=== PATIENT | female | born 1960 | race Caucasian/White ===

== ENCOUNTER 2016-09-01 08:35 | Inpatient (IN) | payer OTHER ==
[~2016-09-01] VITALS: Ht 160 cm; Wt 67.2 kg
[2016-09-01] VITALS (21 sets, daily range): BP systolic 119–142; BP diastolic 63–76; PULSE 83–102; RESP 16–18; Ht 160 cm; Wt 67.2 kg
[~2016-09-01 08:35] MED LIST: metroNIDAZOLE 500 MG/100 ML NS IVPB ONE
[2016-09-01] MEDS ORDERED: CEFAZOLIN 2 GM/50 ML (PMX) 50 ML IVPB ONE (09:00)
[2016-09-01] MEDS ORDERED: Metronidazole 500 MG in NS 100 ML IVPB ONE (09:00)
[2016-09-01] MEDS: LACTATED RINGER'S 1,000 ML IV SCH ×4 (09:58→20:35)
[2016-09-01] MEDS ORDERED: METHYLENE BLUE 1% 10 ML INJ ONE (10:44)
[2016-09-01] MEDS ORDERED: THROMBIN 5000 UNIT VIAL ONE (10:44)
[2016-09-01] MEDS ORDERED: VASOPRESSIN 20 UNITS INJ ONE (10:44)
[2016-09-01] MEDS ORDERED: CEFAZOLIN 1 GM INJ ONE (11:00)
[2016-09-01] MEDS ORDERED: ONDANSETRON 4 MG INJ ONE (11:00)
[2016-09-01] MEDS ORDERED: PROPOFOL 20 ML ONE (11:00)
[2016-09-01] MEDS ORDERED: ROCURONIUM 50 MG INJ ONE ×2 (11:00→13:15)
[2016-09-01] MEDS ORDERED: morphine SULFATE/PF (10 MG/10 ML) INJ ONE (11:00)
[2016-09-01] MEDS ORDERED: GLYCOPYRROLATE 0.4 MG INJ ONE (11:00)
[2016-09-01] MEDS ORDERED: DEXAMETHASONE 4 MG/ML 1 ML INJ ONE (11:00)
[2016-09-01] MEDS ORDERED: MIDAZOLAM 1 MG/ML 2 ML INJ ONE (11:00)
[2016-09-01] MEDS ORDERED: FENTAnyl 50 MCG/ML VIAL ONE ×3 (11:00→13:20)
[2016-09-01] MEDS ORDERED: NEOSTIGMINE 3 MG/3 ML SYRINGE ONE (11:00)
--- NOTE | 2016-09-01 11:39 | HPN ---
Date/Time of Note Date/Time of Note DATE: 09/01/16 TIME: 11:39 Interval H&P Admission Note Pt. seen H&P reviewed: No system changes ANGELA CRUZ MD Sep 01, 2016 11:39
--- NOTE | 2016-09-01 11:43 | HP ---
Date/Time of Note Date/Time of Note DATE: 09/01/16 TIME: 11:41 Assessment/Plan VTE Prophylaxis VTE Prophylaxis Intervention: SCD's Lines/Catheters IV Catheter Type (from Rust): Saline Lock HPI/ROS Admit Date/Time Admit Date/Time Sep 01, 2016 at 08:38 Hx of Present Illness Julien Tena M.D. [facility] History and Physical Examination Estela Perry Aug 31, 2016 Age:56 :1960 Physicians: Physical Therapy Manager Sales Development Manager Oncologist Referring MD: History of the Present Illness: This is a 56 female with a grade 2 endometrial cancer recently diagnosed by d/c endometrial biopsy. Medical history/ROS: Anxiety Ab3 Last Pap Smear: 05/2016 Last Mammogram: 05/2016 Surgical history: no significant abdominal procedures. Medications: Flu no, declined, Pneumococcal no, declined Colonoscopy: yes, 2004 Allergies: No active allergies recorded Family History: Brother -- Colon Ca Social History: Noncontributory Review of Systems: Negative except for above noted Physical Examination Vitals (07/26/2016): Weight 150, Height 63, BP 124/80, BMI 26.6. General: Alert. HEENT: Pupils are equal, round, reactive to light and accommodation. Neck: Supple with no masses of lymphadenopathy. Breast: Deferred due to recent examination and responsibility of primary care physician. Chest: Clear to auscultation and percussion with no rales, ronchi, or wheeze. Heart: Normal rhythm with no murmur. Abdominal exam: nontender, nondistended, no masses, no ascites. location: N/A Pelvic exam: Uterus enlarged and glubular no masses or cul-de-sac nodularity noted Rectal: confirmatory with pelvic exam. Neurological: Grossly intact Assessment: endomtrial cancer stage to be determined Plan: TLH/BSO, pelvic and aortic LND possible ureteral dissection. All risks and benefits of this procedure have been discussed in detail with the patient, as well as alternative treatment strategies and their implications. The patient is aware that there is some possibility of a blood transfusion and its associated risks and benefits. She wishes to proceed and gives her informed consent. Julien Tena M.D. PMH/Family/Social Social History Smoking Status: Heavy tobacco smoker Exam/Review of Systems Vital Signs Vitals Vital Signs Date Time Temp Pulse Resp B/P Pulse Ox O2 Delivery O2 Flow Rate FiO2 09/01/16 09:40 97.6 83 18 128/76 99 Room Air Medications Medications Current Medications Potassium Chloride/Dextrose/ Sod Cl 1,000 ml @ 100 mls/hr Q10H IV ; Start 09/01 at 09:00; Stop 09/01/16 at 20:00 Lactated Ringer's (Lr) 1,000 ml @ 200 mls/hr Q5H IV Last administered on t 09:58; Admin Dose 200 MLS/HR; Start 09/01/16 at 10:00 JULIEN TENA MD Sep 01, 2016 11:43
[2016-09-01] MEDS ORDERED: ROPIVACAINE 0.2% 20 ML VIAL ONE (11:56)
[2016-09-01] MEDS ORDERED: KETOROLAC 30 MG INJ IV PRN (12:00)
[2016-09-01] MEDS ORDERED: CEFAZOLIN 1 GM in SOD CHLORIDE 0.9% 100 ML IVPB SCH (12:00)
[2016-09-01] MEDS ORDERED: POTASSIUM CHLORIDE 20 MEQ in LACTATED RINGER'S 990 ML IV SCH (13:00)
[2016-09-01] MEDS ORDERED: LABETALOL HCL 20MG INJ ONE (13:22)
[2016-09-01] MEDS ORDERED: HYDROmorphONE 1 MG/ML SYG IV PRN ×2 (13:30)
[2016-09-01] MEDS ORDERED: FENTAnyl 50 MCG/ML VIAL IV PRN ×3 (13:30)
[2016-09-01] MEDS ORDERED: NALOXONE (0.4 MG/ML) INJ IV PRN (13:30)
[2016-09-01] MEDS ORDERED: EPHEDrine SULFATE 50 MG/5 ML SYG IV PRN (13:30)
[2016-09-01] MEDS ORDERED: hydrALAzine 20 MG INJ IV PRN (13:30)
[2016-09-01] MEDS ORDERED: NALBUPHINE HCL (10 MG/1 ML) INJ IV PRN (13:30)
[2016-09-01] MEDS ORDERED: HYDROmorphONE (0.2 MG/ML) 10ML SYG IV PRN ×3 (13:30)
[2016-09-01] MEDS ORDERED: OXYCODONE/ACETAMINOPHEN (5/325) TAB PO PRN ×2 (13:30)
[2016-09-01] MEDS ORDERED: DIPHENHYDRAMINE 50 MG INJ IV PRN ×2 (13:30)
[2016-09-01] MEDS ORDERED: FENTAnyl 2MCG/ML-ROPIV 0.2% 100 ML BAG EPI SCH (13:30)
[2016-09-01] MEDS ORDERED: MIDAZOLAM 1 MG/ML 2 ML INJ IV PRN (13:30)
[2016-09-01] MEDS ORDERED: LABETALOL HCL 20MG INJ IV PRN (13:30)
[2016-09-01] MEDS ORDERED: ONDANSETRON 4 MG INJ IV PRN ×2 (13:30)
[2016-09-01] MEDS ORDERED: ZOLPIDEM 5 MG TAB PO PRN (13:30)
[2016-09-01] MEDS ORDERED: TRIMETHOBENZAMIDE 100 MG/ML VIAL IM PRN ×2 (13:30)
[2016-09-01] MEDS ORDERED: MEPERIDINE 25 MG INJ IV PRN (13:30)
[2016-09-01] MEDS ORDERED: SUGAMMADEX SODIUM 200 MG/2 ML VIAL IV ONE (15:48)
[2016-09-01 17:23] LABS: ADD SCAN DIFF NO
[2016-09-01 17:28] LABS: ABNORMAL IP MESSAGE 1; HEMATOCRIT 37.8 % (37.0-47.0); HEMOGLOBIN 13.5 g/dl (12.0-16.0); MEAN CORPUSCULAR HEMOGLOBIN 32.5 pg (29.0-33.0); MEAN CORPUSCULAR HGB CONC 35.7 g/dl (32.0-37.0); MEAN CORPUSCULAR VOLUME 90.9 fl (82.0-101.0); MEAN PLATELET VOLUME 10.5 fl (7.4-10.4); PLATELET COUNT 154 10^3/UL (140-415); RED BLOOD COUNT 4.16 10^6/ul (4.20-5.40); WHITE BLOOD COUNT 13.3 10^3/ul (4.8-10.8)
[2016-09-01 17:50] LABS: CALCIUM 8.4 mg/dl (8.4-10.2); CREATININE 0.92 mg/dl (0.44-1.00); POTASSIUM 3.8 mmol/L (3.5-5.1)
[2016-09-01] MEDS: D5-NS + KCL 20 MEQ 1,000 ML IV SCH ×2 (18:01→19:00)
[2016-09-01 19:05] LABS: LYMPHOCYTES # 0.5 10^3/ul (0.8-2.9); MONOCYTE # 0.3 10^3/ul (0.3-0.9); NEUTROPHIL # 12.1 10^3/ul (1.6-7.5)
[2016-09-01] MEDS: FAMOTIDINE 20 MG INJ IV SCH (20:35)
--- NOTE | 2016-09-01 20:46 | OPR ---
Date/Time of Note Date/Time of Note DATE: 09/01/16 TIME: 20:45 Operative Report Free Text/Dictation OPERATIVE REPORT [facility] Name: Estela Perry Medical Date: 09/01/16 Preoperative Diagnosis: 1-Endometrial cancer grade 2 Postoperative Diagnosis: Endometrial cancer with final pathology pending Procedures: 1- Total laparoscopic hysterectomy with bilateral salpingoophorectomy 2- Bilateral ureteral dissection with repositioning 3- Laparoscopic pelvic and aortic lymph node dissection 4- Retroperitoneal uterine artery ligation adjacent to hypogastric artery 5- Minilaparotomy Surgeon: Dr. Tena Anatomy And Physiology Instructor: Dr. Mac Anaesthesia: General with regional Indications for Procedure: This 56- year old patient had a grade 2 endometrial cancer without evidence of metastatic disease preoperatively and after discussions of options with risks and benefits it was determined that a laparoscopic hysterectomy with bilateral salpingoophorectomy and pelvic/aortic lymph node dissection would be completed for the purposes of treatment and possibly planning additional adjuvant therapy. The pelvic and LND was performed in lieu of final grading not being equivalent to preoperative D&C grade 18-25% of the time and frozen section not being more that 80% reliable in determining grade and depth of invasion; therefore complete staging is performed to determine postoperative management unless there is a significant contraindication. Name: Estela Perry Medical Intraoperative Findings and Summary of Procedure: After placing the Trocars and exploration we noted uterine enlargement with small fibroids with significant adhesions of the adnexia to the sidewalls. The TLH/BSO was then performed without incident but required a ureteral dissection due to anatomic issues of the uterine enlargement due to potential invasion and fibroids and the adnexia adherent to the sidewalls and with retroperitoneal uterine artery ligation adjacent to hypogastric artery for required hemostasis also due to the anatomic deformities, with the laparoscopic LND being subsequently performed with a finding of grossly negative nodes pathology pending. Following vaginal cuff closure and completion of the lymph node dissection the uterus with tubes and ovaries were removed through a minilaparotomy due to a long narrow vagina by extension of the suprapubic 12-mm trocar site. Findings and Procedure: After being prepped and draped in the usual manner an EEA sizer and pneumo- occluder was inserted vaginally. A 5 millimeter trocar was then placed periumbilically without incident. Subsequently, we insufflated and placed two 12- millimeter trocars laterally and a 12 millimeter trocar suprapubically, as well as an additional 5-mm trocar cephlad to the umbilicus. At this time multiple pelvic adhesions were lysed with sharp dissection and the Omni if not adjacent to serosa with a tiny serosal defect. Subsequently we explored and noted a uterine enlargement with adnexia adherent to the sidewalls due to apparent inflammation and old scar tissue. Initially washings were taken and the right round ligament was cauterized and transected with the Gyrus bipolar cutting forceps and the retroperitoneal space further opened parallel to the IP ligament an laterally with the same devise and the Omni. The right ureter was identified and due to the aforementioned distortion due to the extensive uterine enlargement and from adherent adnexia was dissected laterally with the Omni and the endo-dissector. After lateralizing the ureter the uterine artery was identified and clipped lateral to the ureter. Hence, a space was developed the broad ligament and the right IP ligament was Name: [facility] cauterized and transected with a Gyrus bipolar cutting forceps and Thunderbeat after which the uterus was retracted medially and the bladder flap was partly developed with the Gyrus bipolar cutting forceps and the Omni. We then used a 10 -mm ratcheted endo-grasper placed through the 12-mm suprapubic trocar to manipulate the uterus and with the EEA sizer the uterus was retracted and left round ligament was cauterized and transected with the Gyrus bipolar cutting forceps and the retroperitoneal space further opened parallel to the IP ligament an laterally with the same devise. The left ureter was identified and due to the aforementioned distortion was dissected laterally with the Omni and the endo-dissector as done contralaterally. After lateralizing the ureter the uterine artery was identified and clipped lateral to the ureter. Hence, a space was developed in the broad ligament and the left IP ligament was cauterized and transected with a Thunderbeat after which the uterus was retracted medially with the corkscrew, allowing development or the bladder flap uneventfully with the Omni and blunt dissection. Subsequently, the right uterine artery was transected with a Cutting Forceps perpendicular to the distal lower uterine segment and the Cardinal ligament and utero-sacral ligament were both transected with an Omni and Thunderbeat parallel to the lower uterine segment and cervix. An identical series of steps were taken on the left side. The anterior and posterior colpotomies were accomplished with a Thunderbeat anteriorly and posteriorly, and continued around the sides as the specimen was allowed to be free. The vagina was closed with interrupted 0- Vicryl suture and continuous 2-0 v-lock suture. At this time the suprapubic 12 -mm site was extended cephlad 4- cm with a scalpel and the deeper clinical biochemist to the fascia was opened with cautery and the fascia opened digitally and with cautery. The peritoneal cavity was entered bluntly and the aforementioned uterus tubes and ovaries removed with a ring forceps and digitally. The abdomen was irrigated locally and after assuring hemostasis the fascia was closed with partly with interrupted 0- Vicryl suture and the 12-millimeter trocar was reinserted. At this time the pelvic and aortic LND were completed after confirming hemostasis. Initially a fan retractor was used for exposure and secured to the Jong arm and all Name: [facility] lymph node tissue adjacent to the right external iliac artery and vein, hypogastric artery and vein, as well as obturator fossa were removed with sharp and blunt dissection, using the Gyrus bipolar cutting forceps and Omni for hemostasis and lymphostasis. The derek tissue was grasped and subsequently placed under tractions with the Omni and the Gyrus bipolar cutting forceps and spoon then being used for the hemostasis and lymphostasis in the process of removal. The dissection was continued to include derek tissue adjacent to the common iliac vessels. The obturator nerve was identified and all adjacent derek tissue removed with blunt dissection, with the Gyrus bipolar cutting forceps or Gyrus bipolar Omni used for lymphostasis and hemostasis as needed. The fan retractors were adjusted in that a suprapubically placed fan retracted the broad ligament and ureter with ileum while the right lateral trocar was used for a fan to retract the cecum and ascending colon allowing any derek tissue adjacent to the vena cava, as well as aorto-caval nodes to be removed using identical technique. Racking Technician vessels were addressed with the Gyrus bipolar cutting forceps or Gyrus bipolar Omni. At this time we placed the fan retractors for contralateral exposure. Subsequently, all lymph node tissue adjacent to the left external iliac artery and vein, hypogastric artery and vein , as well as obturator fossa were removed with sharp and blunt dissection, the Gyrus bipolar cutting forceps or Navigenics bipolar Omni for hemostasis and lymphostasis, with a technique identical to the right side. The dissection was continued to include derek tissue adjacent to the common iliac vessels. Subsequently, the fan retractors were adjusted and any derek tissue adjacent to the aorta were dissected using similar technique. After irrigating and assuring hemostasis the 12 millimeter trocars other than the suprapubic were removed and the fascia was closed with 0-vicryl using an endo-close devise. The gas was removed and the skin of all sites then closed with a deep layer of 3 -0 Vicryl suture and interrupted 5-0 Plain Gut suture. The EBL was 100cc and the patient tolerated the procedure well and left the OR in good condition. Julien Tena M.D. JULIEN TENA MD Sep 01, 2016 20:46
[2016-09-01] MEDS: CEFAZOLIN 1 GM/50 ML (PMX) 50 ML IVPB SCH (21:03)
[2016-09-01] MEDS: HYDROCODONE/APAP (5/325) TAB PO PRN (21:05)
[2016-09-02] MEDS: CEFAZOLIN 1 GM/50 ML (PMX) 50 ML IVPB SCH ×2 (05:10→12:22)
[2016-09-02 05:35] LABS: ADD SCAN DIFF NO
[2016-09-02 05:38] LABS: HEMATOCRIT 35.4 % (37.0-47.0); HEMOGLOBIN 12.1 g/dl (12.0-16.0); LYMPHOCYTES # 0.9 10^3/ul (0.8-2.9); LYMPHOCYTES % 9.2 % (15.0-51.0); MEAN CORPUSCULAR HGB CONC 34.2 g/dl (32.0-37.0); MEAN CORPUSCULAR VOLUME 90.8 fl (82.0-101.0); MEAN PLATELET VOLUME 10.7 fl (7.4-10.4); MONOCYTE # 0.7 10^3/ul (0.3-0.9); MONOCYTES % 7.6 % (0.0-11.0); NEUTROPHIL # 8.1 10^3/ul (1.6-7.5); NEUTROPHILS % 82.7 % (39.0-77.0); PLATELET COUNT 163 10^3/UL (140-415); RED CELL DISTRIBUTION WIDTH 12.1 % (11.5-14.5); WHITE BLOOD COUNT 9.7 10^3/ul (4.8-10.8)
[2016-09-02 05:55] LABS: INR 0.91; PROTIME 12.2 Sec (12.2-14.2)
[2016-09-02] MEDS: LACTATED RINGER'S 1,000 ML IV SCH ×5 (05:58→21:03)
[2016-09-02 06:08] LABS: ALBUMIN 3.6 g/dl (3.3-4.9); BILIRUBIN,INDIRECT 0.2 mg/dl (0-1.1); BILIRUBIN,TOTAL 0.2 mg/dl (0.2-1.3); CALCIUM 8.7 mg/dl (8.4-10.2); CREATININE 0.77 mg/dl (0.44-1.00); POTASSIUM 4.1 mmol/L (3.5-5.1); TOTAL PROTEIN 5.4 g/dl (6.1-8.1)
[2016-09-02 08:01] VITALS: BP 112/58; RESP 18
[2016-09-02] MEDS: FAMOTIDINE 20 MG INJ IV SCH ×2 (08:39→21:00)
[2016-09-02] MEDS: HYDROCODONE/APAP (5/325) TAB PO PRN ×2 (08:43→18:35)
[2016-09-02] MEDS: morphine 2 MG INJ IV PRN (14:40)
--- NOTE | 2016-09-02 16:00 | CONS ---
Date/Time of Note Date/Time of Note DATE: 09/02/16 TIME: 15:57 Assessment/Plan Assessment/Plan Additional Assessment/Plan - Endomtrial cancer stage to be determined - TLH/BSO, pelvic and aortic LND possible ureteral dissection. Consultation Date/Type/Reason Admit Date/Time Sep 01, 2016 at 08:38 Respiratory: no complaints Cardiovascular: no complaints Gastrointestinal: pain Genitourinary: no complaints Musculoskeletal: no complaints Past Medical History History of the Present Illness: This is a 56 female with a grade 2 endometrial cancer recently diagnosed by d/c endometrial biopsy. Ab3 Last Pap Smear: 05/2016 Last Mammogram: 05/2016 Surgical history: no significant abdominal procedures. Medications: Flu no, declined, Pneumococcal no, declined Colonoscopy: yes, 2004 Allergies: No active allergies recorded Family History: Brother -- Colon Ca Social History: Noncontributory Review of Systems: Negative except for above noted Social History Smoking Status: Heavy tobacco smoker Exam/Review of Systems Vital Signs Vitals Vital Signs Date Time Temp Pulse Resp B/P Pulse Ox O2 Delivery O2 Flow Rate FiO2 09/02/16 08:01 98.9 100 18 112/58 98 09/01/16 17:40 2.0 09/01/16 16:40 Nasal Cannula Intake and Output 09/01/16 09/01/16 09/02/16 15:00 23:00 07:00 Intake Total 3850 ml 1370 ml Output Total 400 ml 1800 ml Balance 3450 ml -430 ml Exam Constitutional: alert, oriented, well developed Respiratory: clear to auscultation, normal air movement Cardiovascular: nl pulses, regular rate and rhythm Gastrointestinal: nl liver, spleen, soft Results Result Diagram: 09/02/16 0507 09/02/16 0507 Results 24 hrs Laboratory Tests Test 09/01/16 17:20 09/02/16 05:07 White Blood Count 13.3 H 9.7 # Red Blood Count 4.16 L 3.90 L Hemoglobin 13.5 12.1 Hematocrit 37.8 35.4 L Mean Corpuscular Volume 90.9 90.8 Mean Corpuscular Hemoglobin 32.5 31.0 Mean Corpuscular Hemoglobin Concent 35.7 34.2 Red Cell Distribution Width 12.0 12.1 Platelet Count 154 163 Mean Platelet Volume 10.5 H 10.7 H Neutrophils % 91.0 H 82.7 H Band Neutrophils % 3.0 Lymphocytes % 4.0 L 9.2 L Monocytes % 2.0 7.6 Neutrophils # 12.1 H 8.1 H Lymphocytes # 0.5 L 0.9 Monocytes # 0.3 0.7 Sodium Level 136 137 Potassium Level 3.8 4.1 Chloride Level 105 106 Carbon Dioxide Level 23 26 Anion Gap 12 9 Blood Urea Nitrogen 11 10 Creatinine 0.92 0.77 Glucose Level 189 116 # Calcium Level 8.4 8.7 Eosinophils % 0.0 Basophils % 0.0 Nucleated Red Blood Cells % 0.0 Eosinophils # 0.0 Basophils # 0.0 Nucleated Red Blood Cells # 0.0 Prothrombin Time 12.2 Prothrombin Time Ratio 1.0 INR International Normalized Ratio 0.91 Total Bilirubin 0.2 Direct Bilirubin 0.00 Indirect Bilirubin 0.2 Aspartate Amino Transf (AST/SGOT) 22 Alanine Aminotransferase (ALT/SGPT) 35 Alkaline Phosphatase 45 Total Protein 5.4 L Albumin 3.6 Globulin 1.80 Albumin/Globulin Ratio 2.00 Medications Medications Current Medications Lactated Ringer's (Lr) 1,000 ml @ 60 mls/hr [id number] IV Last administered on 08:43; Admin Dose 60 MLS/HR; Start 09/01/16 at 10:00 Morphine Sulfate (morphine) 2 mg Q2H PRN IV PAIN LEVEL 6-10 Last administered on 09/02/16 14:40; Admin Dose 2 MG; Start 09/01/16 at 12:00 Acetaminophen/ Hydrocodone Bitart ([place] (5/325)) 1 tab Q6H PRN PO PAIN LEVEL 6 -10 Last administered on 09/02/16 08:43; Admin Dose 1 TAB; Start 09/01/16 at 12 :00 Ketorolac Tromethamine (Toradol) 30 mg Q6H PRN IV PAIN; Start 09/01/16 at 12:00 ; Stop 09/04/16 at 11:59 Famotidine (Pepcid Iv) 20 mg Q12 IV Last administered on 09/02/16 08:39; Admin Dose 20 MG; Start 09/01/16 at 21:00 Simethicone (Mylicon) 80 mg BID PRN PO DISTENSION/GAS/BLOATING Last administered on 09/02/16 15:06; Admin Dose 80 MG; Start 09/02/16 at 15:00 MARY SANTOS Sep 02, 2016 16:00
--- NOTE | 2016-09-02 19:34 | RADRPT ---
PROCEDURE: US Lower extremity Venous. CLINICAL INDICATION: edema TECHNIQUE: Multiple sonographic images of the bilateral lower extremity deep venous system was obt ained utilizing grayscale, color-flow, compressive sonography and doppler imaging with augmentation. The images were reviewed on a PACS workstation. COMPARISON: None. FINDINGS: There is normal compressibility and flow within the bilateral common femoral, deep femoral, superfic ial femoral and popliteal veins. The deep veins the calf were incompletely visualized. IMPRESSION: No sonographic evidence for deep venous thrombosis in the bilateral lower extremities. Physician Randi Date Time Electronically viewed and signed by Physician Randi on 09/02/2016 19:33 ML/
[2016-09-02 20:03] VITALS: BP 117/65; RESP 20
[2016-09-03] MEDS: morphine 2 MG INJ IV PRN (00:05)
[2016-09-03] MEDS: HYDROCODONE/APAP (5/325) TAB PO PRN ×2 (06:05→14:19)
[2016-09-03 06:36] LABS: BASOPHILS % 0.1 % (0.0-2.0); EOSINOPHILS % 0.1 % (0.0-7.0); HEMATOCRIT 38.5 % (37.0-47.0); HEMOGLOBIN 12.8 g/dl (12.0-16.0); LYMPHOCYTES # 1.5 10^3/ul (0.8-2.9); LYMPHOCYTES % 11.4 % (15.0-51.0); MEAN CORPUSCULAR HGB CONC 33.2 g/dl (32.0-37.0); MEAN CORPUSCULAR VOLUME 93.2 fl (82.0-101.0); MONOCYTE # 0.9 10^3/ul (0.3-0.9); MONOCYTES % 6.5 % (0.0-11.0); NEUTROPHIL # 10.6 10^3/ul (1.6-7.5); NEUTROPHILS % 81.5 % (39.0-77.0); PLATELET COUNT 165 10^3/UL (140-415); RED BLOOD COUNT 4.13 10^6/ul (4.20-5.40); RED CELL DISTRIBUTION WIDTH 12.4 % (11.5-14.5); WHITE BLOOD COUNT 13.1 10^3/ul (4.8-10.8)
[2016-09-03 07:22] VITALS: BP 110/60; RESP 16
[2016-09-03 07:27] LABS: ADD SCAN DIFF NO
[2016-09-03 07:33] LABS: CALCIUM 9.1 mg/dl (8.4-10.2); CREATININE 0.86 mg/dl (0.44-1.00); POTASSIUM 3.6 mmol/L (3.5-5.1)
[2016-09-03] MEDS: FAMOTIDINE 20 MG INJ IV SCH ×2 (09:06→22:18)
--- NOTE | 2016-09-03 10:26 | PN ---
Date/Time of Note Date/Time of Note DATE: 09/03/16 TIME: 10:23 Assessment/Plan VTE Prophylaxis VTE Prophylaxis Intervention: SCD's Lines/Catheters IV Catheter Type (from Nrs): Peripheral IV Urinary Cath still in place: No Assessment/Plan Chief Complaint/Hosp Course Endometrial cancer Problems: Assessment/Plan A- awaiting flatus to further adv diet and possible d/c tomorrow P- enema and OOB more Subjective 24 Hr Interval Summary Free Text/Dictation no flatus and has gas pains Exam/Review of Systems Vital Signs Vitals Vital Signs Date Time Temp Pulse Resp B/P Pulse Ox O2 Delivery O2 Flow Rate FiO2 09/03/16 07:22 98.8 95 16 110/60 96 09/01/16 17:40 2.0 09/01/16 16:40 Nasal Cannula Intake and Output 09/02/16 09/02/16 09/03/16 15:00 23:00 07:00 Intake Total 100 ml 1770 ml Output Total 2900 ml Balance 100 ml -1130 ml Exam Resp- clear CVS- NSR Abd- distended mildly tender Ext NT no edema Results Result Diagram: 09/03/16 0515 09/03/16 0510 Results 24 hrs Laboratory Tests Test 09/03/16 05:10 09/03/16 05:15 Sodium Level 138 Potassium Level 3.6 Chloride Level 101 Carbon Dioxide Level 29 Anion Gap 12 Blood Urea Nitrogen 10 Creatinine 0.86 Glucose Level 107 Calcium Level 9.1 White Blood Count 13.1 #H Red Blood Count 4.13 L Hemoglobin 12.8 Hematocrit 38.5 Mean Corpuscular Volume 93.2 Mean Corpuscular Hemoglobin 31.0 Mean Corpuscular Hemoglobin Concent 33.2 Red Cell Distribution Width 12.4 Platelet Count 165 Mean Platelet Volume 11.0 H Neutrophils % 81.5 H Lymphocytes % 11.4 L Monocytes % 6.5 Eosinophils % 0.1 Basophils % 0.1 Nucleated Red Blood Cells % 0.0 Neutrophils # 10.6 H Lymphocytes # 1.5 Monocytes # 0.9 Eosinophils # 0.0 Basophils # 0.0 Nucleated Red Blood Cells # 0.0 Medications Medications Current Medications Lactated Ringer's (Lr) 1,000 ml @ 60 mls/hr [id number] IV Last administered on t 08:43; Admin Dose 60 MLS/HR; Start 09/01/16 at 10:00 Morphine Sulfate (morphine) 2 mg Q2H PRN IV PAIN LEVEL 6-10 Last administered on 09/03/16 00:05; Admin Dose 2 MG; Start 09/01/16 at 12:00 Acetaminophen/ Hydrocodone Bitart ([place] (5/325)) 1 tab Q6H PRN PO PAIN LEVEL 6 -10 Last administered on 09/03/16 06:05; Admin Dose 1 TAB; Start 09/01/16 at 12 :00 Ketorolac Tromethamine (Toradol) 30 mg Q6H PRN IV PAIN; Start 09/01/16 at 12:00 ; Stop 09/04/16 at 11:59 Famotidine (Pepcid Iv) 20 mg Q12 IV Last administered on 09/03/16 09:06; Admin Dose 20 MG; Start 09/01/16 at 21:00 Simethicone (Mylicon) 80 mg BID PRN PO DISTENSION/GAS/BLOATING Last administered on 09/03/16 05:56; Admin Dose 80 MG; Start 09/02/16 at 15:00 ANGELA CRUZ MD Sep 03, 2016 10:25
[2016-09-03] MEDS ORDERED: MINERAL OIL 133 ML ENEMA PR ONE (11:30)
[2016-09-03] MEDS: METOCLOPRAMIDE 10 MG INJ IV SCH ×2 (12:58→18:00)
[2016-09-03] MEDS: LACTATED RINGER'S 1,000 ML IV SCH (13:43)
--- NOTE | 2016-09-03 17:28 | PN ---
Date/Time of Note Date/Time of Note DATE: 09/03/16 TIME: 17:20 Assessment/Plan VTE Prophylaxis VTE Prophylaxis Intervention: SCD's Lines/Catheters IV Catheter Type (from Rust): Peripheral IV Urinary Cath still in place: No Assessment/Plan Chief Complaint/Hosp Course Pt tolerates liquid diet well, +BS, neg flatus, voids. Problems: Assessment/Plan - Endometrial cancer, s/p TLH/BSO. Further recommendations based on clinical course. Plan of care discussed with Dr. Olson. Exam/Review of Systems Vital Signs Vitals Vital Signs Date Time Temp Pulse Resp B/P Pulse Ox O2 Delivery O2 Flow Rate FiO2 09/03/16 07:22 98.8 95 16 110/60 96 09/01/16 17:40 2.0 09/01/16 16:40 Nasal Cannula Intake and Output 09/02/16 09/02/16 09/03/16 15:00 23:00 07:00 Intake Total 100 ml 1770 ml Output Total 2900 ml Balance 100 ml -1130 ml Exam Constitutional: alert, oriented Head: atraumatic, normocephalic Neck: non-tender, supple Respiratory: normal air movement Cardiovascular: nl pulses Gastrointestinal: non-tender, other (Status post surgery), soft Extremities: normal pulses Neurological: nl mental status Results Result Diagram: 09/03/16 0515 09/03/16 0510 Results 24 hrs Laboratory Tests Test 09/03/16 05:10 09/03/16 05:15 Sodium Level 138 Potassium Level 3.6 Chloride Level 101 Carbon Dioxide Level 29 Anion Gap 12 Blood Urea Nitrogen 10 Creatinine 0.86 Glucose Level 107 Calcium Level 9.1 White Blood Count 13.1 #H Red Blood Count 4.13 L Hemoglobin 12.8 Hematocrit 38.5 Mean Corpuscular Volume 93.2 Mean Corpuscular Hemoglobin 31.0 Mean Corpuscular Hemoglobin Concent 33.2 Red Cell Distribution Width 12.4 Platelet Count 165 Mean Platelet Volume 11.0 H Neutrophils % 81.5 H Lymphocytes % 11.4 L Monocytes % 6.5 Eosinophils % 0.1 Basophils % 0.1 Nucleated Red Blood Cells % 0.0 Neutrophils # 10.6 H Lymphocytes # 1.5 Monocytes # 0.9 Eosinophils # 0.0 Basophils # 0.0 Nucleated Red Blood Cells # 0.0 Medications Medications Current Medications Lactated Ringer's (Lr) 1,000 ml @ 60 mls/hr [id number] IV Last administered on 08:43; Admin Dose 60 MLS/HR; Start 09/01/16 at 10:00 Acetaminophen/ Hydrocodone Bitart ([place] (5/325)) 1 tab Q6H PRN PO PAIN LEVEL 6 -10 Last administered on 09/03/16 14:19; Admin Dose 1 TAB; Start 09/01/16 at 12 :00 Ketorolac Tromethamine (Toradol) 30 mg Q6H PRN IV PAIN; Start 09/01/16 at 12:00 ; Stop 09/04/16 at 11:59 Famotidine (Pepcid Iv) 20 mg Q12 IV Last administered on 09/03/16 09:06; Admin Dose 20 MG; Start 09/01/16 at 21:00 Metoclopramide HCl (Reglan) 10 mg Q6 IV Last administered on 09/03/16 12:58; Admin Dose 10 MG; Start 09/03/16 at 12:00 CRESENCIO GILBERT Sep 03, 2016 17:28
[2016-09-03 19:30] VITALS: BP 120/65; RESP 18
[2016-09-04] MEDS: METOCLOPRAMIDE 10 MG INJ IV SCH ×3 (06:00→12:00)
[2016-09-04] MEDS: LACTATED RINGER'S 1,000 ML IV SCH (06:23)
[2016-09-04 07:06] LABS: HEMATOCRIT 33.8 % (37.0-47.0); HEMOGLOBIN 11.4 g/dl (12.0-16.0); MEAN CORPUSCULAR HEMOGLOBIN 31.1 pg (29.0-33.0); MEAN CORPUSCULAR HGB CONC 33.7 g/dl (32.0-37.0); MEAN CORPUSCULAR VOLUME 92.3 fl (82.0-101.0); MEAN PLATELET VOLUME 11.6 fl (7.4-10.4); RED BLOOD COUNT 3.66 10^6/ul (4.20-5.40); WHITE BLOOD COUNT 9.4 10^3/ul (4.8-10.8)
[2016-09-04 07:18] LABS: CALCIUM 8.9 mg/dl (8.4-10.2); CREATININE 0.71 mg/dl (0.44-1.00)
[2016-09-04 07:25] LABS: PLATELET COUNT 124 10^3/UL (140-415)
[2016-09-04 07:48] VITALS: BP 111/64; RESP 20
[2016-09-04] MEDS: FAMOTIDINE 20 MG INJ IV SCH (10:14)
[2016-09-04] MEDS: HYDROCODONE/APAP (5/325) TAB PO PRN (10:26)
[2016-09-04 10:41] LABS: EOSINOPHILS # 0.1 10^3/ul (0.0-0.5); LYMPHOCYTES # 1.6 10^3/ul (0.8-2.9); MONOCYTE # 0.5 10^3/ul (0.3-0.9); NEUTROPHIL # 7.2 10^3/ul (1.6-7.5)
--- NOTE | 2016-09-04 14:05 | PN ---
Date/Time of Note Date/Time of Note DATE: 09/04/16 TIME: 14:00 Assessment/Plan VTE Prophylaxis VTE Prophylaxis Intervention: other Lines/Catheters IV [facility]from [facility] Saline Lock Urinary Cath still in place: No Assessment/Plan Assessment/Plan - Endometrial cancer -s/p TLH/BSO. - per surgery Further recommendations based on clinical course. Plan of care discussed with Dr. Olson. Exam/Review of Systems Vital Signs Vitals Vital Signs Date Time Temp Pulse Resp B/P Pulse Ox O2 Delivery O2 Flow Rate FiO2 09/04/16 07:48 99.3 67 20 111/64 93 09/01/16 17:40 2.0 09/01/16 16:40 Nasal Cannula Intake and Output 09/03/16 09/03/16 09/04/16 15:00 23:00 07:00 Intake Total 920 ml 1060 ml 920 ml Output Total 600 ml Balance 320 ml 1060 ml 920 ml Exam Constitutional: alert, oriented, well developed Respiratory: clear to auscultation, normal air movement Cardiovascular: nl pulses, regular rate and rhythm Gastrointestinal: non-tender, soft Musculoskeletal: nl extremities to inspection Extremities: normal pulses Neurological: nl mental status, nl speech Lymph: other Results Result Diagram: 09/04/16 0525 09/04/16 0525 Results 24 hrs Laboratory Tests Test 09/04/16 05:25 White Blood Count 9.4 # Red Blood Count 3.66 L Hemoglobin 11.4 L Hematocrit 33.8 L Mean Corpuscular Volume 92.3 Mean Corpuscular Hemoglobin 31.1 Mean Corpuscular Hemoglobin Concent 33.7 Red Cell Distribution Width 12.0 Platelet Count 124 #L Mean Platelet Volume 11.6 H Neutrophils % 77.0 Lymphocytes % 17.0 Monocytes % 5.0 Eosinophils % 1.0 Neutrophils # 7.2 Lymphocytes # 1.6 Monocytes # 0.5 Eosinophils # 0.1 Clumped Platelets Sodium Level 138 Potassium Level 4.0 Chloride Level 100 Carbon Dioxide Level 25 Anion Gap 17 H Blood Urea Nitrogen 10 Creatinine 0.71 Glucose Level 103 Calcium Level 8.9 Medications Medications Current Medications Lactated Ringer's (Lr) 1,000 ml @ 60 mls/hr [id number] IV Last administered on t 08:43; Admin Dose 60 MLS/HR; Start 09/01/16 at 10:00 Acetaminophen/ Hydrocodone Bitart ([place] (5/325)) 1 tab Q6H PRN PO PAIN LEVEL 6 -10 Last administered on 09/04/16 10:26; Admin Dose 1 TAB; Start 09/01/16 at 12: 00 Famotidine (Pepcid Iv) 20 mg Q12 IV Last administered on 09/04/16 10:14; Admin Dose 20 MG; Start 09/01/16 at 21:00 Metoclopramide HCl (Reglan) 10 mg Q6 IV Last administered on 09/03/16 12:58; Admin Dose 10 MG; Start 09/03/16 at 12:00 MARY SANTOS Sep 04, 2016 14:05
--- NOTE | 2016-09-04 14:36 | PN ---
Date/Time of Note Date/Time of Note DATE: 09/04/16 TIME: 14:32 Assessment/Plan VTE Prophylaxis VTE Prophylaxis Intervention: LMWH Lines/Catheters IV C[facility]ter Type (from [facility] Urinary Cath still in place: No Assessment/Plan Chief Complaint/Hosp Course Endometrial cancer Problems: Assessment/Plan A- doing well P- discharge Subjective 24 Hr Interval Summary Free Text/Dictation + flatus, manuel diet and feels better Exam/Review of Systems Vital Signs Vitals Vital Signs Date Time Temp Pulse Resp B/P Pulse Ox O2 Delivery O2 Flow Rate FiO2 09/04/16 07:48 99.3 67 20 111/64 93 09/01/16 17:40 2.0 09/01/16 16:40 Nasal Cannula Intake and Output 09/03/16 09/03/16 09/04/16 15:00 23:00 07:00 Intake Total 920 ml 1060 ml 920 ml Output Total 600 ml Balance 320 ml 1060 ml 920 ml Exam Resp- clear CVS- NSR Abd- soft Ext - Nt Results Result Diagram: 09/04/16 0525 09/04/16 0525 Results 24 hrs Laboratory Tests Test 09/04/16 05:25 White Blood Count 9.4 # Red Blood Count 3.66 L Hemoglobin 11.4 L Hematocrit 33.8 L Mean Corpuscular Volume 92.3 Mean Corpuscular Hemoglobin 31.1 Mean Corpuscular Hemoglobin Concent 33.7 Red Cell Distribution Width 12.0 Platelet Count 124 #L Mean Platelet Volume 11.6 H Neutrophils % 77.0 Lymphocytes % 17.0 Monocytes % 5.0 Eosinophils % 1.0 Neutrophils # 7.2 Lymphocytes # 1.6 Monocytes # 0.5 Eosinophils # 0.1 Clumped Platelets Sodium Level 138 Potassium Level 4.0 Chloride Level 100 Carbon Dioxide Level 25 Anion Gap 17 H Blood Urea Nitrogen 10 Creatinine 0.71 Glucose Level 103 Calcium Level 8.9 Medications Medications Current Medications Lactated Ringer's (Lr) 1,000 ml @ 60 mls/hr [id number] IV Last administered on 08:43; Admin Dose 60 MLS/HR; Start 09/01/16 at 10:00 Acetaminophen/ Hydrocodone Bitart ([place] (5/325)) 1 tab Q6H PRN PO PAIN LEVEL 6 -10 Last administered on 09/04/16 10:26; Admin Dose 1 TAB; Start 09/01/16 at 12: 00 Famotidine (Pepcid Iv) 20 mg Q12 IV Last administered on 09/04/16 10:14; Admin Dose 20 MG; Start 09/01/16 at 21:00 Metoclopramide HCl (Reglan) 10 mg Q6 IV Last administered on 09/03/16 12:58; Admin Dose 10 MG; Start 09/03/16 at 12:00 ANGELA CRUZ MD Sep 04, 2016 14:35
--- NOTE | 2016-09-04 15:41 | DS ---
Date/Time of Note Date/Time of Note DATE: 09/04/16 TIME: 15:40 Discharge Summary Admission/Discharge Info Admit Date/Time Sep 01, 2016 at 08:38 Discharge Date/Time Patient Condition: Stable Hx of Present Illness Julien Tena M.D. [facility] History and Physical Examination Estela Perry Aug 31, 2016 Age:56 :1960 Physicians: [employer] Oncologist Referring MD: History of the Present Illness: This is a 56 female with a grade 2 endometrial cancer recently diagnosed by d/c endometrial biopsy. Medical history/ROS: Anxiety Ab3 Last Pap Smear: 05/2016 Last Mammogram: 05/2016 Surgical history: no significant abdominal procedures. Medications: Flu no, declined, Pneumococcal no, declined Colonoscopy: yes, 2004 Allergies: No active allergies recorded Family History: Brother -- Colon Ca Social History: Noncontributory Review of Systems: Negative except for above noted Physical Examination Vitals (07/26/2016): Weight 150, Height 63, BP 124/80, BMI 26.6. General: Alert. HEENT: Pupils are equal, round, reactive to light and accommodation. Neck: Supple with no masses of lymphadenopathy. Breast: Deferred due to recent examination and responsibility of primary care physician. Chest: Clear to auscultation and percussion with no rales, ronchi, or wheeze. Heart: Normal rhythm with no murmur. Abdominal exam: nontender, nondistended, no masses, no ascites. location: N/A Pelvic exam: Uterus enlarged and glubular no masses or cul-de-sac nodularity noted Rectal: confirmatory with pelvic exam. Neurological: Grossly intact Assessment: endomtrial cancer stage to be determined Plan: TLH/BSO, pelvic and aortic LND possible ureteral dissection. All risks and benefits of this procedure have been discussed in detail with the patient, as well as alternative treatment strategies and their implications. The patient is aware that there is some possibility of a blood transfusion and its associated risks and benefits. She wishes to proceed and gives her informed consent. Julien Tena M.D. Hospital Course Pt tolerates liquid diet well, +BS, neg flatus, voids. Home Meds No Active Prescriptions or Reported Meds Primary Care Provider Hernando Aviles Pending Labs Laboratory Tests Test 09/04/16 05:25 White Blood Count 9.410^3/ul (4.8-10.8) Red Blood Count 3.6610^6/ul (4.20-5.40) Hemoglobin 11.4g/dl (12.0-16.0) Hematocrit 33.8% (37.0-47.0) Mean Corpuscular Volume 92.3fl (82.0-101.0) Mean Corpuscular Hemoglobin 31.1pg (29.0-33.0) Mean Corpuscular Hemoglobin Concent 33.7g/dl (32.0-37.0) Red Cell Distribution Width 12.0% (11.5-14.5) Platelet Count 83041^3/UL (140-415) Mean Platelet Volume 11.6fl (7.4-10.4) Neutrophils % 77.0% (39.0-77.0) Lymphocytes % 17.0% (15.0-51.0) Monocytes % 5.0% (0.0-11.0) Eosinophils % 1.0% (0.0-7.0) Neutrophils # 7.210^3/ul (1.6-7.5) Lymphocytes # 1.610^3/ul (0.8-2.9) Monocytes # 0.510^3/ul (0.3-0.9) Eosinophils # 0.110^3/ul (0.0-0.5) Clumped Platelets Sodium Level 138mmol/L (135-144) Potassium Level 4.0mmol/L (3.5-5.1) Chloride Level 100mmol/L (97-110) Carbon Dioxide Level 25mmol/L (21-31) Anion Gap 17 (8-16) Blood Urea Nitrogen 10mg/dl (7-20) Creatinine 0.71mg/dl (0.44-1.00) Glucose Level 103mg/dl (70-220) Calcium Level 8.9mg/dl (8.4-10.2) MARY SANTOS Sep 04, 2016 15:40
--- NOTE | 2016-09-04 15:43 | PDOCDIS ---
Discharge Instructions CONDITION Patient Condition: Stable HOME CARE INSTRUCTIONS: Diet Instructions: ACTIVITY: Activity Restrictions: Slowly Increase Activity Rest between Activity Avoid heavy lifting Do not Drive Do not operate Machinery Do not operate Power Tool Avoid Heavy Housework Bathing Restrictions: Sponge Bath FOLLOW UP/APPOINTMENTS Follow-up Plan FU with Primary MD X 1 week FU with Surgery as recommended. Call 911 or go to the nearest hospital if symptoms get worse. FABIAN Olson/ patient/staff MARY SANTOS Sep 04, 2016 15:43
[2016-09-04] MEDS ORDERED: DOCU-144 PO (15:45)
[2016-09-04] MEDS ORDERED: HYDR-3498 PO (15:45)
[2016-09-04] MEDS ORDERED: PANT40TA3 PO (15:45)
== END 2016-09-04 17:30 | disposition home or self-care (01) | DRG 741 ==
LOC: REC 08:38 → MS2 17:50
PROC: 07BC4ZZ Excision of Pelvis Lymphatic, Percutaneous Endoscopic Approach (ICD-10-PCS; 2016-09-01)
PROC: 0UTC4ZZ Resection of Cervix, Percutaneous Endoscopic Approach (ICD-10-PCS; 2016-09-01)
PROC: 0UT24ZZ Resection of Bilateral Ovaries, Percutaneous Endoscopic Approach (ICD-10-PCS; 2016-09-01)
PROC: 0UT74ZZ Resection of Bilateral Fallopian Tubes, Percutaneous Endoscopic Approach (ICD-10-PCS; 2016-09-01)
PROC: 07BD4ZX Excision of Aortic Lymphatic, Percutaneous Endoscopic Approach, Diagnostic (ICD-10-PCS; 2016-09-01)
PROC: 07BC4ZX Excision of Pelvis Lymphatic, Percutaneous Endoscopic Approach, Diagnostic (ICD-10-PCS; 2016-09-01)
PROC: 0TS84ZZ Reposition Bilateral Ureters, Percutaneous Endoscopic Approach (ICD-10-PCS; 2016-09-01)
PROC: 0UT94ZZ Resection of Uterus, Percutaneous Endoscopic Approach (ICD-10-PCS; principal; 2016-09-01 11:00)
DX: C54.1 Malignant neoplasm of endometrium (principal); F41.9 Anxiety disorder, unspecified; F17.200 Nicotine dependence, unspecified, uncomplicated; Z80.0 Family history of malignant neoplasm of digestive organs
CPT/HCPCS: 80048; 80053; 85025; 85610; 86850; 86900; 86901; 86920; 88104; 88307; 93970; J0690; J1100; J1170; J1885; J2250; J2270; J2274; J2405; J2710; J2765; J2795; J3010; J3480; J7120